=== PATIENT | female | born 2005 | race Caucasian/White ===

== ENCOUNTER 2025-05-07 15:48 | Observation (INO) | payer OTHER ==
[~2025-05-07] VITALS: Ht 152.4 cm; Wt 54.4 kg
[~2025-05-07 15:48] MED LIST: EPIPEN0.3 MG/0.3 IM; MELO7.5 PO; NEXPLANON68 MG SQ; PROP10 PO
[2025-05-07 16:49] LABS: BASOPHILS ABSOLUTE AUTO 0.06 K/mm3 (0.00-0.23); BASOPHILS PERCENT AUTO 1 % (0-2); EOSINOPHILS ABSOLUTE AUTO 0.00 K/mm3 (0.00-0.68); EOSINOPHILS PERCENT AUTO 0 % (0-6); Hematocrit 37.0 % (33.0-51.0); Hemoglobin 12.8 g/dL (11.5-16.0); IMMATURE GRAN ABSOLUTE AUTO 0.05 K/mm3 (0.00-0.10); IMMATURE GRAN PERCENT AUTO 1 % (0-1); LYMPHOCYTES ABSOLUTE AUTO 1.53 K/mm3 (0.84-5.20); LYMPHOCYTES PERCENT AUTO 16 % (21-46); MONOCYTES ABSOLUTE AUTO 0.85 K/mm3 (0.16-1.47); MONOCYTES PERCENT AUTO 9 % (4-13); Mean Corpuscular HGB Conc 34.6 g/dL (31.5-36.5); Mean Corpuscular Volume 92 fL (80-100); NEUTROPHILS ABSOLUTE AUTO 7.30 K/mm3 (1.96-9.15); NEUTROPHILS PERCENT AUTO 75 % (41-73); NRBC ABSOLUTE 0.00 K/mm3 (0.00-0.02); NRBC Auto 0.0 /100 WBC (0.0-0.2); Platelet Count 337 K/mm3 (150-400); RDW Coefficient Variation 13.2 % (11.7-14.2); RDW Standard Deviation 44.1 fL (35.1-46.3)
[2025-05-07 17:03] LABS: Source, Urine Voided
[2025-05-07] MEDS ORDERED: MOBIC15 MG PO (17:05)
[2025-05-07 17:06] LABS: Bilirubin, Urine Neg (Neg); Glucose Qualitative, Urine Neg (Neg); Ketones, Urine 3+ (Neg); Leukocyte Esterase, Urine Neg (Neg); Protein, Urine 1+ (Neg); Specific Gravity, Urine 1.010 (1.003-1.022); Urobilinogen, Urine NORM (Normal)
[2025-05-07] MEDS ORDERED: Venlafaxine HCl75 M1 PO (17:07)
[2025-05-07] MEDS ORDERED: Adderall Xr 1010 MG PO (17:08)
[2025-05-07] MEDS ORDERED: Inderal 20 mg T20 MG PO (17:09)
[2025-05-07 17:12] LABS: Ethanol (Alcohol), Blood, Med <3 mg/dL; Salicylate <1.7 mg/dL (2.8-20.0)
[2025-05-07 17:13] LABS: Acetaminophen, Random <2.0 ug/mL (10.0-30.0); Alanine Aminotransfer (ALT/SGP 34 U/L (12-78); Albumin, Blood 4.2 g/dL (3.4-5.0); Albumin/Globulin Ratio 1.1 (0.8-1.8); Anion Gap 7 mmol/L (3-11); Aspartate Aminotrans (AST/SGOT 21 U/L (12-37); Bilirubin, Total 1.2 mg/dL (0.1-1.0); Blood Urea Nitrogen 5 mg/dL (8-24); CO2, Blood 28 mmol/L (21-32); Calcium, Blood 9.3 mg/dL (8.5-10.1); Chloride, Blood 99 mmol/L (98-108); Creatinine, Blood 0.71 mg/dL (0.40-1.00); Globulin, Blood 3.7 g/dL (2.2-4.0); Glucose, Blood 115 mg/dL (70-99); Potassium, Blood 3.4 mmol/L (3.5-5.5); Sodium, Blood 131 mmol/L (136-145); Total Protein, Blood 7.9 g/dL (6.4-8.2)
[2025-05-07 17:17] LABS: Color, Urine Pale Yellow (P-Yellow)
[2025-05-07 18:00] LABS: U Amphetamine Screen Not Detected; U Barbituate Screen Not Detected; U Benzodiazapine Screen Not Detected; U Buprenorphine Screen Not Detected; U Cannabinoids Screen DETECTED; U Cocaine Screen Not Detected; U Methadone Screen Not Detected; U Methamphetamine Screen Not Detected; U Opiates Screen Not Detected; U Oxycodone Screen Not Detected; U Phencyclidine Screen Not Detected
[2025-05-08] MEDS ORDERED: DiphenhydrAMINE HCl 50 MG/ML 1ML Vial IM ONE (18:15)
[2025-05-08] MEDS ORDERED: LORazepam 2 MG/ML 1ML Injection IM ONE (18:15)
[2025-05-08] MEDS ORDERED: Haloperidol Lactate Inj. 5 MG/ML Injection IM ONE (18:15)
[2025-05-11] MEDS ORDERED: LORA10ER PO (18:16)
[2025-05-11] MEDS ORDERED: Cyclobenzaprine5 MG PO (18:17)
== END 2025-05-08 21:55 | disposition other institution (70) ==
LOC: ER 15:48 → EOR 15:49
PROVIDERS: ADMIT Emergency Medicine
DX: F30.2 Manic episode, severe with psychotic symptoms (principal); Z88.2 Allergy status to sulfonamides; Z91.018 Allergy to other foods; Z91.010 Allergy to peanuts; Z79.899 Other long term (current) drug therapy
CPT/HCPCS: 36415; 80053; 80320; 81025; 85025; 93005; 93010; 96372; 99285-25; A9270; G0378; G0480; J1200; J1630; J2060

== ENCOUNTER 2025-05-07 15:49 | Inpatient (IN) | payer OTHER ==
[~2025-05-07] VITALS: Ht 152.4 cm; Wt 49.2 kg
[2025-05-07] MEDS ORDERED: MOBIC15 MG PO ×2 (17:05)
[2025-05-07] MEDS ORDERED: Venlafaxine HCl75 M1 PO ×2 (17:07)
[2025-05-07] MEDS ORDERED: Adderall Xr 1010 MG PO (17:08)
[2025-05-07] MEDS ORDERED: Inderal 20 mg T20 MG PO ×2 (17:09)
[2025-05-08] MEDS ORDERED: Ondansetron 4 MG SoluTab MM PRN (13:10)
[2025-05-08] MEDS ORDERED: FLU VACC TS2025-26(6MOS UP)/PF 45 MCG/0.5 ML SYRINGE IM SCH (13:15)
[2025-05-08] MEDS ORDERED: Polyethylene Glycol 3350 17 gm PO PRN (13:15)
[2025-05-08] MEDS ORDERED: Aluminum Hydroxide 320MG/5ML 473 ML PO PRN (13:15)
[2025-05-08 22:10] VITALS: BP 113/74
[2025-05-08 22:44] VITALS: BP 113/74
--- NOTE | 2025-05-08 23:21 | NUR ---
ADMISSION NOTE: PATIENT IS A 19 YEAR OLD FEMALE WHO IDENTIFIES FEMALE SHE/HER. SHE ARRIVED ON THE [facility] AT 2158, ACCOMPANIED BY KEYANNA BRADLEY AND TWO SECURITY STAFF. PATIENT PRESENTED SLEEPY AND A LITTLE CONFUSED, SLOW TO RESPOND. RN TO RN REPORT INDICATED THAT SHE HAD RECEIVED IM INJECTIONS OF ATIVAN, BENADRYL AND HALDOL DUE TO CONTINUED AGGRESSIVE BEHAVIOR. SHE WAS SLOW BUT COOPERATIVE WITH CARES. SHE COOPERATED WITH SKIN CHECK, DONE BY SINAN BOWIE AND JENIFFER RN, AND CHANGED INTO SCRUBS. SHE HAS SOME OLD SCARS ON HER RIGHT INNER FOREARM. SHE STATED THAT THEY ARE FROM "CUTTING MYSELF LONG AGO". SHE STATED THAT "CUTTING FELT GOOD, AND IT FEELS EVEN BETTER TO MOVE MY FINGERS ALONG THE SCARS. IT IS SO SOOTHING." SHE DENIED ANY URGES TO CUT AT THIS TIME. "I DON'T DO IT ANY MORE, I JUST LIKE TO FEEL THE SCARS WHEN I'M UPSET". SHE WEIGHED IN AT 108.4 LB AND STATED THAT SHE STANDS FIVE FEET EVEN IN HEIGHT. SHE WAS ABLE TO AMBULATE SELF TO THE VISITOR ROOM, WHERE SHE READ PAPERWORK CAREFULLY AND SIGNED WILLINGLY. SHE PUT HER MOTHER AND HER BOYFRIEND, HELENA, THE TWO PEOPLE FOR VERBAL RELEASE. SHE KEPT FALLING ASLEEP, BUT AWOKE EASILY AND CONTINUED TO ANSWER QUESTIONS APPROPRIATELY. SHE DOES NOT UNDERSTAND WHY SHE IS AT [facility]. SHE BELIEVES THAT SHE AND HER MOTHER HAD "AN ARGUMENT AND WE BOTH NEEDED TO TAKE A CHILL PILL. WE WENT FOR A DRIVE TO COOL OFF AND I ENDED UP HERE". 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 SHE ALSO TAKES INDERAL AND EFFEXOR. SHE ADMITTED TO TAKING "TOO MANY" BUT STATES "IT WAS ACCIDENTAL". SHE STATES THAT HER MOTHER AND GRANDMOTHER HAVE DEPRESSION. SHE HAS A THERAPIST BUT DID NOT KNOW THEIR NAME,AND A PCP AT [place]. SHE STATES THAT HER REASON FOR LIVING IS "MY BOYFRIEND, MY ANIMALS AND MY COMFORT". IN ONE YEAR, SHE SEES HERSELF " TO MY BOYFRIEND". SHE IS ALLERGIC TO SULFA, NUTMEG OIL AND PEANUTS. SHE STATES SHE HAS NEVER SMOKED, BUT DOES USE THC AT TIMES. SHE WEARS GLASSES, AND HER MOTHER PLANS TO BRING THEM TO HER. SHE STATES THAT SOMETIMES "I STAY UP FOR 20 HOURS". SHE ADMITS TO INSOMNIA, STATING THAT IT IS "HARD TO FALL ASLEEP". SHE REQUESTED AND WAS GIVEN FRUIT AND GATORADE. THEN SHE WAS GIVEN A TOUR OF THE UNIT AND SHOWN TO HER ROOM. SHE IS NOW IN BED RESTING WITH EYES CLOSED AND RESPIRATIONS CONFIRMED. SHE WAS NOT GIVEN HER EVENING ZYPREXA IN THE ED, DUE TO SEDATION, AND THE SAME CONTINUES HERE. IT WAS SCHEDULED FOR 2100. CONTINUING TO MONITOR FOR SAFETY WITH Q15 MINUTE CHECKS.
--- NOTE | 2025-05-09 04:30 | NUR ---
SHIFT SUMMARY: PLEASE READ ADMISSION NOTE. PATIENT CONTINUED TO REST WITH EYES CLOSED AND RESPIRATIONS CONFIRMED THROUGHOUT THE REMAINDER OF THE SHIFT. SHE HAD NO ISSUES OR CONCERNS NOTED. NO S/SX SUICIDAL IDEATION, THOUGHTS OF SELF HARMING OR A/V/T HALLUCINATIONS. CONTINUING TO MONITOR FOR SAFETY WITH Q15 MINUTE CHECKS.
[2025-05-09 08:02] LABS: CHOL/HDL RATIO 2.1; Cholesterol 167 mg/dL (50-200); HDL Cholesterol 79 mg/dL (>39); LDL/HDL RATIO 1.0; Low Density Lipoprotein Chol 78 mg/dL (0-110); Triglycerides 50 mg/dL (30-140); Very Low Density Lipoprot Chol 10 mg/dL (6-28)
[2025-05-09] MEDS ORDERED: Multivitamins 1 Tab PO SCH (09:00)
[2025-05-09 09:26] VITALS: BP 117/89
--- NOTE | 2025-05-09 16:53 | NUR ---
SHIFT SUMMARY DENIES SI, HI, AVTH. T/O DAY PT HAS BEEN PLEASANT AND COOPERATIVE; CONVERSATES APPROPRIATELY, AND HAS BEEN INTERACTING W/ PEERS/STAFF. VISITED W/ MOM/BOYFRIEND TODAY. NO ACUTE EVENTS.
[2025-05-09 19:45] VITALS: BP 140/92
--- NOTE | 2025-05-10 04:20 | NUR ---
SHIFT SUMMARY: PATIENT PREFERS TO BE CALLED "EMBER", AND USES SHE/HER PRONOUNS. SHE WAS IN THE MILIEU COLORING QUIETLY IN THE DAY ROOM AT THE BEGINNING OF THE SHIFT. SHE WAS ABLE TO ANSWER HOSE HANDLER QUESTIONS IN A LOGICAL AND LINEAR MANNER, ALTHOUGH HER ANSWERED WERE SHORT AND BLUNTED. HER AFFECT WAS ALSO BLUNTED, AND SHE HAD DELAYED RESPONSES. SHE DENIED SUICIDAL IDEATION, HOMICIDAL IDEATION, THOUGHTS OF SELF HARMING AND A/V/T HALLUCINATIONS. SHE STATED THAT HER DAY WAS "GOOD" BUT COULD NOT ELABORATE. SHE DID SAY THAT SHE LIKED HER ROOMMATE. SHE PARTICIPATED IN SNACK AND WRAP UP GROUP AT 2030, AND WAS COMPLIANT WITH EVENING MEDICATION ADMINISTRATION. SHE REQUESTED AND WAS GIVEN TRAZODONE FOR INSOMNIA. SHE WENT TO BED SHORTLY AFTER SNACK TIME AND REMAINED AWAKE. SHE GOT UP AND DOWN QUITE A FEW TIMES, SETTLING INTO THE SENSORY ROOM AND THEN GOING BACK TO HER ROOM. SHE WAS ASKED IF SHE NEEDED ANYTHING, AND WOULD GIVE A DELAYED RESPONSE OF "NO". SHE WAS A BIT CLUMSY ON HER FEET AND ACTING SOMEWHAT CONFUSED OR DISORIENTED, SO RN DID NOT TRY TO GIVE HER PRNS AT THAT TIME. AT ABOUT 0200, SHE DID SAY SHE NEEDED HELP SLEEPING BECAUSE "I AM ANXIOUS". SHE WAS A 3 ON THE MASS SCALE FOR ANXIETY. SHE WAS GIVEN VISTARIL AND THEN WENT BACK TO BED. SHE WAS NOTED TO BE RESTING QUIETLY WITH EYES CLOSED AND RESPIRATIONS CONFIRMED, WITH WAKEFUL PERIODS, WHERE SHE WOULD SIT UP IN BED, THEN LIE BACK DOWN. SHE DID NOT HAVE A RESTFUL NIGHT. CONTINUING TO MONITOR FOR SAFETY WITH Q15 MINUTE CHECKS.
--- NOTE | 2025-05-10 06:04 | NUR ---
BLOOD SUGAR: PATIENT C/O NAUSEA, WAS GIVEN CRACKERS. STATED HANDS WERE SHAKY, WAS GIVEN ORANGE JUICE. CONTINUED TO FEEL "FUNNY", SO CBG TAKEN, IT READ 156, WHICH IS NOT SURPRISING CONSIDERING ORANGE JUICE ON AN EMPTY STOMACH. A1C RESULTS ARE LISTED "PENDING". PATIENT STATES SHE HAS NOT HAD ANY DIABETIC ISSUES IN THE PAST. CONTINUING TO MONITOR. REASSURED PATIENT SHE CAN ASK TO HAVE CBG TAKEN ANY TIME.
[2025-05-10 07:55] VITALS: BP 136/95
[2025-05-10 07:59] VITALS: BP 133/93
[2025-05-10 09:22] LABS: Anion Gap 9 mmol/L (3-11); Blood Urea Nitrogen 10 mg/dL (8-24); CO2, Blood 28 mmol/L (21-32); Calcium, Blood 9.1 mg/dL (8.5-10.1); Chloride, Blood 103 mmol/L (98-108); Creatinine, Blood 0.71 mg/dL (0.40-1.00); Glucose, Blood 87 mg/dL (70-99); Potassium, Blood 3.9 mmol/L (3.5-5.5); Sodium, Blood 136 mmol/L (136-145)
--- NOTE | 2025-05-10 17:03 | NUR ---
SHIFT SUMMARY PT DENIES SI, HI, AVTH. PT CONVERSATES APPROPRIATELY. PT BECAME AGITATED WHEN MOM/BOYFRIEND CAME TO VISIT AND WAS CRYING/YELLING, "I DON'T DESERVE TO BE HERE. I DON'T WANT TO BE HERE ON MY BIRTHDAY". THERAPEUTIC COMMUNICATION EFFECTIVE. PT REFUSED ANY PRN ANXIOLYTICS. PT ENDORSES STILL BEING FRUSTRATED, BUT HAS BEEN CALM, PLEASANT, AND COOPERATIVE. TALKED W/ PATIENT ABOUT COPING MECHANISMS. NO OTHER ACUTE EVENTS TODAY.
[2025-05-10 19:42] VITALS: BP 136/95
--- NOTE | 2025-05-11 04:25 | NUR ---
SHIFT SUMMARY AT BEGINNING OF SHIFT PATIENT SITTING IN GEE LAUGHING AND TALKING WITH PEERS. DENIES SI, HI, OR AVH. COOPERATIVE WITH PO MEDICATIONS, REQUESTING TRAZODONE FOR SLEEP. PATIENT APPEARS TO BE SLEEPING WELL T/O NIGHT RESP EVEN AND UNLABORED, SITTING UP IN BED A FEW TIMES THEN FALLING BACK TO SLEEP WITHOUT DIFFICULTY. CONTINUE TO MONITOR Q15MIN
--- NOTE | 2025-05-11 05:48 | NUR ---
PATIENT AWAKE, SITTING IN GEE STRETCHING QUIETLY.
[2025-05-11 07:49] VITALS: BP 128/86
--- NOTE | 2025-05-11 16:46 | NUR ---
SHIFT ASSESSMENT: PT WAS ALERT AND ORIENTED X 4. SHE DENEID SI, HI AND AVH. SHE ENDORSED ANXIETY 2-3/10w, "I AM ANXIOUS ABOUT GOING HOME, I WANT TO GO HOME SO BAD." SHE DESCRIBED HER MOOD , "IT'S BEEN PRETTY GOOD...I'M JUST A LITTLE BIT SAD." PT REPORTED PAIN TO HER LEFT ARM AND LEFT SIDE 8/10w, "I HAVE SUNI DANLOS SYNDROME AND MOST PAIN MEDS DON'T HELP...I DO STRETCHING TO HELP EASE THE PAIN." PT'S GOAL IS TO "LEARN TO REGULATE MY MOOD MORE." PT HAS ATTENDED GROUPS AND BEEN ACTIVE IN THE PT MILIEU.
[2025-05-11] MEDS ORDERED: LORA10ER PO ×2 (18:16)
[2025-05-11] MEDS ORDERED: Cyclobenzaprine5 MG PO ×2 (18:17)
--- NOTE | 2025-05-12 00:05 | NUR ---
MID-SHIFT SUMMARY: PATIENT CARE TO TRANSFER TO ANOTHER RN AT 0030. PATIENT WAS UP IN THE MILIEU LISTENING TO MUSIC ON THE HEADPHONES AT THE BEGINNING OF THE SHIFT. SHE PRESENTED EUTHYMIC AND PLEASANT. SHE HAD A NEW ORDER FOR FLEXERIL 5 MG PO X 1 QHS TONIGHT, WHICH WAS GIVEN WITH HER EVENING MEDICATIONS. SHE WAS ABLE TO ANSWER CYBER INCIDENT RESPONDER QUESTIONS IN A LOGICAL AND LINEAR MANNER. SHE DENIED SUICIDAL IDEATION, THOUGHTS OF SELF HARMING AND A/V/T HALLUCINATIONS. SHE WANTED HER EVENING MEDICATIONS EARLY, AND REQUESTED TRAZODONE FOR INSOMNIA, WHICH WAS EFFECTIVE. SHE DECLINED OFFER OF SNACK, AND WENT TO BED EARLY, WHERE SHE WAS NOTED TO BE RESTING QUIETLY WITH EYES CLOSED AND RESPIRATIONS CONFIRMED FOR THE REMAINDER OF THE SHIFT. CONTINUING TO MONITOR FOR SAFETY WITH Q15 MINUTE CHECKS.
--- NOTE | 2025-05-12 06:22 | NUR ---
SHIFT SUMMARY Assumed pt care at 2400. Pt is lying on her bed with eyes closed and appeared to be asleep. Respirations regular and unlabored, no apparent distress. At about 0440, pt approached the nurse station c/o pain and discomfort in her hips. Staff offered PRN meds, to which pt stated wouldn t help because of her Eros-Danlos Syndrome diagnosis. Staff then offered to allow her in the Sensory Room to use the murphy bag chair, which pt accepted. Staff continues to monitor q15m for safety and wellness.
[2025-05-12 07:29] VITALS: BP 132/90
--- NOTE | 2025-05-12 16:47 | NUR ---
SHIFT SUMMARY PT A/O X4; PLEASANT AND COOPERATIVE WITH CARE. SHE DENIES SI, HI, AVTH. HER AFFECT IS CONGRUENT TO HER STATED MOOD AND SHE REPORTS THAT HER MOOD IS MUCH BETTER TODAY. PT IS HAPPY WITH THE NEW PSYCHIATRIST AND IS HAPPY TO BE BACK ON HER PROPRANOLOL. PT VISITED WITH HER MOTHER AND BOYFRIEND AND FEELS THE VISIT WENT WELL. PT IS ANXIOUS FOR DISCHARGE AND FEELS LIKE SHE IS READY.
[2025-05-12 21:14] VITALS: BP 128/83
--- NOTE | 2025-05-13 04:25 | NUR ---
SHIFT SUMMARY: PATIENT WAS IN THE HALLWAY PACING AND LISTENING TO HEADPHONES AT THE BEGINNING OF THE SHIFT. SHE PRESENTED HAPPY AND CHEERFUL. SHE STATED, "I HAD A REALLY GOOD DAY" AND "MY MOM AND BOYFRIEND CAME TO VISIT". SHE STATED, "I WISH I COULD GO HOME TOMORROW, BUT I'LL MISS YOU GUYS, SO I GUESS IT'S OKAY TO STAY UNTIL SUNDAY". SHE WAS ABLE TO ANSWER ENVIRONMENTAL SERVICES TECHNICIAN QUESTIONS IN A LOGICAL AND LINEAR MANNER. SHE DENIED SUICIDAL IDEATION, THOUGHTS OF SELF HARMING AND A/V/T HALLUCINATIONS. SHE PARTICIPATED IN SNACK AND WRAP UP GROUP AT 2030, AND WAS COMPLIANT WITH EVENING MEDICATION ADMINISTRATION. SHE REQUESTED TRAZODONE, WHICH WAS EFFECTIVE FOR TREATMENT OF INSOMNIA. SHE GOT UP X1 DURING THE NIGHT TO STATE THAT THE MATTRESS WAS HURTING HER BACK, BUT SHE DID NOT WANT ANYTHING FOR IT, AND WENT BACK TO BED. SHE MOSTLY RESTED QUIETLY WITH EYES CLOSED AND RESPIRATIONS CONFIRMED. CONTINUING TO MONITOR FOR SAFETY WITH Q15 MINUTE CHECKS.
[2025-05-13 08:29] VITALS: BP 130/98
--- NOTE | 2025-05-13 14:25 | NUR ---
IMPORTANT DISCHARGE INFORMATION PATIENT TO BE DISCHARGED ON 05/14/25 AT 11AM. HER MOTHER "NOVEMBER" WILL BE COMING TO PICK HER UP. ALL PARTIES VERBALIZE AN UNDERSTANDING. FOLLOW UP WITH [facility] AND OUTSIDE NETWORK PCP. BIPIN KNOWS SHE NEEDS TO ROLL HER GROCERY STORE MANAGER TO [facility] GROC[facility] STORE MANAGER SHE IS STAYING IN [facility]. THIS INFORMATION HAS BEEN PROVIDED TO HER. PHARMACY: [facility] FAX [phone] RESOURCES: CANDE ANDERSON, [facility]OWN [facility], [facility] APPLICATION, [employer], HOW TO FILE FOR PROTECTIVE SERVICES.
--- NOTE | 2025-05-13 16:38 | NUR ---
SHIFT SUMMARY PT A/O X4; PLEASANT AND COOPERATIVE WITH CARE. PT REPORTS THAT SHE IS DOING MUCH BETTER AND FEELS THAT HER MOOD IS GOOD. SHE DENIES SI, HI, AVTH. HER AFFECT IS CONGRUENT TO STATED MOOD. SHE ATTENDED MOST GROUPS AND ALL MEALS. NO ACUTE CHANGES THIS SHIFT. PT TO POTENTIALLY DISCHARGE ON SUNDAY.
[2025-05-13 20:04] VITALS: BP 125/84
--- NOTE | 2025-05-14 04:21 | NUR ---
SHIFT SUMMARY: PATIENT WAS IN THE HALLWAY PACING WITH HEADPHONES AT THE BEGINNING OF THE SHIFT. SHE WAS PLEASANT AND COOPERATIVE WITH CARES. SHE WAS INTERACTING WELL WITH NEW FEMALE PEER. SHE WAS ABLE TO ANSWER SPORTS LAWYER QUESTIONS IN A LOGICAL AND LINEAR MANNER. SHE DENIED SUICIDAL IDEATION, THOUGHTS OF SELF HARMING AND A/V/T HALLUCINATIONS. SHE STATED, "I'M EXCITED THAT I AM LEAVING TOMORROW, BUT I'LL MISS YOU ALL". SHE WAS IN AND OUT OF THE DAYROOM, SOCIALIZING APPROPRIATELY WITH STAFF AND PEERS. SHE PARTICIPATED IN SNACK AND WRAP UP GROUP AT 2030 IN THE DINING AREA, AND WAS COMPLIANT WITH EVENING MEDICATION ADMINISTRATION. SHE REQUESTED AND WAS GIVEN TRAZODONE FOR INSOMNIA, WHICH WAS EFFECTIVE. SHE WENT TO BED AFTER SNACK, AND WAS NOTED TO BE RESTING QUIETLY WITH EYES CLOSED AND RESPIRATIONS CONFIRMED UNTIL ABOUT 0400 WHEN SHE GOT UP TO SIT IN THE SENSORY ROOM, WHERE SHE WROTE IN HER JOURNAL AND LISTENED TO MUSIC ON THE HEADPHONES. CONTINUING TO MONITOR FOR SAFETY WITH Q15 MINUTE CHECKS.
[2025-05-14 08:11] VITALS: BP 131/95
[2025-05-14] MEDS ORDERED: OLAN10 PO ×2 (08:48)
[2025-05-14 08:50] VITALS: BP 123/102
--- NOTE | 2025-05-14 11:33 | NUR ---
DISCHARGE SUMMARY EXPLAINED D/C INSTRUCTIONS TO PT. PT STATES UNDERSTANDING AND SIGNED ACKNOWLEDGEMENT FORM. PT WAS GIVEN PRINTED INFORMATION PROVIDED BY JAROCHO BOWIE. PT GIVEN HER BELONGINGS BY [facility] AND SIGNED BELONGINGS FORM. SHE DRESSED SELF IN CLOTHING AND AMBULATED OUT OF DOOR TO HER RIDE. RX FAXED TO [facility] PER PT REQUEST.
== END 2025-05-14 11:25 | disposition home or self-care (01) | DRG 885 ==
LOC: BHU 15:49
PROVIDERS: ADMIT Student in an Organized Health Care Education/Training Program
DX: F30.2 Manic episode, severe with psychotic symptoms (principal); Z88.2 Allergy status to sulfonamides; Z88.8 Allergy status to other drugs, medicaments and biological substances; Z91.010 Allergy to peanuts; Z79.899 Other long term (current) drug therapy
CPT/HCPCS: 36415; 80048; 80061; 82947; 83036; 84703; A9270

== ENCOUNTER 2025-05-18 17:00 | Emergency (ER) | payer OTHER ==
[~2025-05-18] VITALS: Ht 152.4 cm; Wt 51.7 kg
[~2025-05-18 17:00] MED LIST changes: +Adderall Xr 1010 MG PO; +Cyclobenzaprine5 MG PO; +Inderal 20 mg T20 MG PO; +LORA10ER PO; +MOBIC15 MG PO; +OLAN10 PO; +Venlafaxine HCl75 M1 PO
[2025-05-18 17:57] LABS: Source, Urine Clean Catch
[2025-05-18 18:01] LABS: Bilirubin, Urine Neg (Neg); Color, Urine Yellow (P-Yellow); Glucose Qualitative, Urine Neg (Neg); Ketones, Urine Neg (Neg); Leukocyte Esterase, Urine 1+ (Neg); Protein, Urine 1+ (Neg); Specific Gravity, Urine 1.010 (1.003-1.022); Urobilinogen, Urine NORM (Normal)
[2025-05-18 18:48] LABS: BASOPHILS ABSOLUTE AUTO 0.03 K/mm3 (0.00-0.23); BASOPHILS PERCENT AUTO 0 % (0-2); EOSINOPHILS ABSOLUTE AUTO 0.11 K/mm3 (0.00-0.68); EOSINOPHILS PERCENT AUTO 2 % (0-6); Hematocrit 36.5 % (33.0-51.0); Hemoglobin 12.2 g/dL (11.5-16.0); IMMATURE GRAN ABSOLUTE AUTO 0.05 K/mm3 (0.00-0.10); IMMATURE GRAN PERCENT AUTO 1 % (0-1); LYMPHOCYTES ABSOLUTE AUTO 2.34 K/mm3 (0.84-5.20); LYMPHOCYTES PERCENT AUTO 34 % (21-46); MONOCYTES ABSOLUTE AUTO 0.65 K/mm3 (0.16-1.47); MONOCYTES PERCENT AUTO 10 % (4-13); Mean Corpuscular HGB Conc 33.4 g/dL (31.5-36.5); Mean Corpuscular Volume 94 fL (80-100); NEUTROPHILS ABSOLUTE AUTO 3.62 K/mm3 (1.96-9.15); NEUTROPHILS PERCENT AUTO 53 % (41-73); NRBC ABSOLUTE 0.00 K/mm3 (0.00-0.02); NRBC Auto 0.0 /100 WBC (0.0-0.2); Platelet Count 216 K/mm3 (150-400); RDW Coefficient Variation 13.8 % (11.7-14.2); RDW Standard Deviation 47.0 fL (35.1-46.3)
[2025-05-18 19:05] LABS: Alanine Aminotransfer (ALT/SGP 23.0 U/L (12-78); Albumin, Blood 3.8 g/dL (3.4-5.0); Albumin/Globulin Ratio 1.1 (0.8-1.8); Anion Gap 7.0 mmol/L (3-11); Aspartate Aminotrans (AST/SGOT 14.0 U/L (12-37); Bilirubin, Total 0.4 mg/dL (0.1-1.0); Blood Urea Nitrogen 15.0 mg/dL (8-24); CO2, Blood 26.0 mmol/L (21-32); Calcium, Blood 9.0 mg/dL (8.5-10.1); Chloride, Blood 107.0 mmol/L (98-108); Creatinine, Blood 0.59 mg/dL (0.40-1.00); Globulin, Blood 3.4 g/dL (2.2-4.0); Glucose, Blood 84.0 mg/dL (70-99); Potassium, Blood 3.8 mmol/L (3.5-5.5); Sodium, Blood 136.0 mmol/L (136-145); Total Protein, Blood 7.2 g/dL (6.4-8.2)
== END 2025-05-18 22:05 | disposition left against medical advice (07) ==
LOC: ER 17:00
PROVIDERS: Student in an Organized Health Care Education/Training Program
DX: O99.891 Other specified diseases and conditions complicating pregnancy (principal); R10.9 Unspecified abdominal pain; Z53.21 Procedure and treatment not carried out due to patient leaving prior to being seen by health care provider
CPT/HCPCS: 80053; 81001; 83690; 84702; 85025; 86900; 86901; 87086; 99281